=== PATIENT | male | born 1945 | race Caucasian/White ===

== ENCOUNTER 2019-12-08 16:13 | Inpatient (IN) ==
[2019-12-08] MEDS ORDERED: Dexamethasone 4 MG/ML VIAL IVP ONE (16:30)
[2019-12-08 16:49] LABS: Hematocrit 38.1 % (37.5-50.1); Hemoglobin 12.9 g/dL (12.9-16.9); Immature Granulocytes % 0.5 % (0-4); Lymphocytes # 0.3 K/mcL (0.6-4.6); Lymphocytes % 8.9 %; Mean Corpuscular HGB Conc 33.9 g/dL (31.6-35.5); Mean Corpuscular Hemoglobin 29.9 pg (28.0-33.3); Mean Corpuscular Volume 88.2 fL (83.0-100.0); Mean Platelet Volume 10.9 fL (9.4-12.4); Monocytes # 0.2 K/mcL (0.0-1.3); Monocytes % 5.5 %; Neutrophils # 3.3 K/mcL (1.6-8.9); Platelet Count 148 K/mcL (140-400); Red Blood Count 4.32 M/mcL (4.19-5.50); Red Cell Distribution Width 11.9 % (11.5-14.5); Segmented Neutrophils % 85.1 %; White Blood Count 3.8 K/mcL (4.3-11.1)
[2019-12-08 17:07] LABS: BUN/Creatinine Ratio 17 (6-26); Blood Urea Nitrogen 17 mg/dL (8-23); Calcium 7.7 mg/dL (8.6-10.3); Carbon Dioxide 27 mEq/L (23-29); Chloride 93 mEq/L (98-107); Glucose 137 mg/dL (70-105); Osmolality,Calculated 268 (280-300); Potassium 3.9 mEq/L (3.5-5.1); Sodium 127 mEq/L (136-145); Troponin I 0.03 ng/mL (< 0.04); eGFR For African Americans > 60 (> 60); eGFR For Non-African Americans > 60 (> 60)
[2019-12-08 17:20] LABS: Adenovirus Not Detected (Not Detect); Coronavirus 229E Not Detected (Not Detect); Coronavirus HKU1 Not Detected (Not Detect); Coronavirus NL63 Not Detected (Not Detect); Coronavirus OC43 Not Detected (Not Detect); SARS-CoV-2 DETECTED (Not Detect)
[2019-12-08 17:21] LABS: Bordetella Pertussis Not Detected (Not Detect); Chlamydophila pneumoniae Not Detected (Not Detect); Human Metapneumovirus Not Detected (Not Detect); Human Rhinovirus/Enterovirus Not Detected (Not Detect); Influenza A Subtype 2009 H1 Not Detected (Not Detect); Influenza B Not Detected (Not Detect); Mycoplasma pneumoniae Not Detected (Not Detect); Parainfluenza Virus 1 Not Detected (Not Detect); Parainfluenza Virus 2 Not Detected (Not Detect); Parainfluenza Virus 3 Not Detected (Not Detect); Parainfluenza Virus 4 Not Detected (Not Detect); Respiratory Syncytial Virus Not Detected (Not Detect)
[2019-12-08] MEDS ORDERED: Azithromycin 500 MG in 0.9 % Sodium Chloride 250 ML IVPB ONE (17:31)
[2019-12-08] MEDS ORDERED: Acetaminophen 325 MG TABLET PO PRN (17:34)
[2019-12-08] MEDS ORDERED: Ondansetron 4 MG/2 ML VIAL IVP PRN (17:34)
[2019-12-08] MEDS ORDERED: Calcium Gluconate 1gm/50mL 1 GM/50 ML BAG IVPB ONE (17:37)
[2019-12-08] MEDS ORDERED: *HR* Enoxaparin 30 MG/0.3 ML SYRINGE SQ ONE (18:08)
[2019-12-08 19:52] LABS: Alanine Aminotransferase 20 Units/L (7-52); Albumin 3.4 g/dL (3.5-5.7); Albumin/Globulin Ratio 1.4 (1.1-2.2); Alkaline Phosphatase 59 Units/L (34-104); Aspartate Amino Transferase 41 Units/L (13-39); Bilirubin,Direct 0.1 mg/dL (0.0-0.2); Bilirubin,Indirect 0.3 mg/dL (0.0-1.0); Bilirubin,Total 0.4 mg/dL (0.3-1.0); C-Reactive Protein 135 mg/L (Less than 10); Globulin 2.5 g/dL (2.4-3.5); Lactate Dehydrogenase 339 Units/L (140-271); Total Protein 5.9 g/dL (6.4-8.9)
[2019-12-08 20:10] LABS: Ferritin 849 ng/mL (20-250)
[2019-12-08 21:18] LABS: INR 0.9; Prothrombin Time 10.5 Seconds (9.4-12.1)
[2019-12-09] MEDS: *HR* Enoxaparin 40 MG/0.4 ML SYRINGE SQ SCH (05:02)
[2019-12-09 05:41] LABS: Hematocrit 38.2 % (37.5-50.1); Hemoglobin 12.9 g/dL (12.9-16.9); Mean Corpuscular HGB Conc 33.8 g/dL (31.6-35.5); Mean Corpuscular Hemoglobin 30.3 pg (28.0-33.3); Mean Corpuscular Volume 89.7 fL (83.0-100.0); Mean Platelet Volume 10.5 fL (9.4-12.4); Platelet Count 148 K/mcL (140-400); Red Blood Count 4.26 M/mcL (4.19-5.50); Red Cell Distribution Width 11.9 % (11.5-14.5); White Blood Count 2.6 K/mcL (4.3-11.1)
[2019-12-09 06:00] LABS: Alanine Aminotransferase 19 Units/L (7-52); Albumin 3.4 g/dL (3.5-5.7); Albumin/Globulin Ratio 1.3 (1.1-2.2); Alkaline Phosphatase 58 Units/L (34-104); Aspartate Amino Transferase 37 Units/L (13-39); BUN/Creatinine Ratio 18 (6-26); Bilirubin,Direct 0.1 mg/dL (0.0-0.2); Bilirubin,Indirect 0.3 mg/dL (0.0-1.0); Bilirubin,Total 0.4 mg/dL (0.3-1.0); Blood Urea Nitrogen 15 mg/dL (8-23); Calcium 7.7 mg/dL (8.6-10.3); Carbon Dioxide 27 mEq/L (23-29); Chloride 94 mEq/L (98-107); Globulin 2.7 g/dL (2.4-3.5); Glucose 157 mg/dL (70-105); Osmolality,Calculated 272 (280-300); Potassium 4.1 mEq/L (3.5-5.1); Sodium 129 mEq/L (136-145); Total Protein 6.1 g/dL (6.4-8.9); eGFR For African Americans > 60 (> 60); eGFR For Non-African Americans > 60 (> 60)
[2019-12-09] MEDS ORDERED: Calcium Gluconate 1gm/50mL 1 GM/50 ML BAG IVPB ONE (07:53)
[2019-12-09] MEDS: Tiotropium 18 MCG inhalation IH SCH (08:27)
[2019-12-09] MEDS ORDERED: Azithromycin 250 MG TABLET PO SCH (09:00)
[2019-12-09] MEDS ORDERED: Dexamethasone 10 MG/ML VIAL IVP SCH (09:00)
[2019-12-09] MEDS: Furosemide 20 MG/2 ML VIAL IVP SCH (12:46)
[2019-12-09] MEDS: Dexamethasone 4 MG/ML VIAL IVP SCH (12:47)
[2019-12-10] MEDS: *HR* Enoxaparin 40 MG/0.4 ML SYRINGE SQ SCH (05:41)
[2019-12-10 06:15] LABS: Hematocrit 36.9 % (37.5-50.1); Hemoglobin 12.5 g/dL (12.9-16.9); Mean Corpuscular HGB Conc 33.9 g/dL (31.6-35.5); Mean Corpuscular Hemoglobin 30.2 pg (28.0-33.3); Mean Corpuscular Volume 89.1 fL (83.0-100.0); Mean Platelet Volume 10.8 fL (9.4-12.4); Platelet Count 198 K/mcL (140-400); Red Blood Count 4.14 M/mcL (4.19-5.50)
[2019-12-10 06:24] LABS: White Blood Count 4.6 K/mcL (4.3-11.1)
[2019-12-10 06:30] LABS: BUN/Creatinine Ratio 32 (6-26); Blood Urea Nitrogen 25 mg/dL (8-23); Calcium 7.9 mg/dL (8.6-10.3); Carbon Dioxide 23 mEq/L (23-29); Chloride 97 mEq/L (98-107); Glucose 166 mg/dL (70-105); Magnesium 2.1 mg/dL (1.6-2.6); Osmolality,Calculated 278 (280-300); Potassium 4.1 mEq/L (3.5-5.1); Sodium 130 mEq/L (136-145); eGFR For African Americans > 60 (> 60); eGFR For Non-African Americans > 60 (> 60)
[2019-12-10] MEDS: Dexamethasone 4 MG/ML VIAL IVP SCH (07:59)
[2019-12-10] MEDS: Furosemide 20 MG/2 ML VIAL IVP SCH (08:00)
[2019-12-10] MEDS: Tiotropium 18 MCG inhalation IH SCH (08:06)
[2019-12-10 08:23] LABS: Alanine Aminotransferase 19 Units/L (7-52); Albumin 3.3 g/dL (3.5-5.7); Albumin/Globulin Ratio 1.3 (1.1-2.2); Alkaline Phosphatase 64 Units/L (34-104); Aspartate Amino Transferase 38 Units/L (13-39); Bilirubin,Direct 0.1 mg/dL (0.0-0.2); Bilirubin,Indirect 0.2 mg/dL (0.0-1.0); Bilirubin,Total 0.3 mg/dL (0.3-1.0); Globulin 2.6 g/dL (2.4-3.5); Total Protein 5.9 g/dL (6.4-8.9)
[2019-12-10] MEDS ORDERED: Calcium Gluconate 1gm/50mL 1 GM/50 ML BAG IVPB ONE (11:41)
[2019-12-10] MEDS ORDERED: Ondansetron 4 MG/2 ML VIAL IVP PRN (13:01)
[2019-12-10] MEDS ORDERED: Remdesivir 200 MG in 0.9 % Sodium Chloride 210 ML IVPB ONE (16:00)
[2019-12-11 03:46] LABS: Hematocrit 39.3 % (37.5-50.1); Hemoglobin 12.8 g/dL (12.9-16.9); Mean Corpuscular HGB Conc 32.6 g/dL (31.6-35.5); Mean Corpuscular Hemoglobin 29.5 pg (28.0-33.3); Mean Corpuscular Volume 90.6 fL (83.0-100.0); Mean Platelet Volume 10.3 fL (9.4-12.4); Platelet Count 249 K/mcL (140-400); Red Blood Count 4.34 M/mcL (4.19-5.50); Red Cell Distribution Width 12.2 % (11.5-14.5); White Blood Count 5.7 K/mcL (4.3-11.1)
[2019-12-11 03:52] LABS: INR 0.9; Prothrombin Time 9.8 Seconds (9.4-12.1)
[2019-12-11 04:02] LABS: Alanine Aminotransferase 29 Units/L (7-52); Albumin 3.3 g/dL (3.5-5.7); Albumin/Globulin Ratio 1.2 (1.1-2.2); Alkaline Phosphatase 57 Units/L (34-104); Aspartate Amino Transferase 40 Units/L (13-39); BUN/Creatinine Ratio 36 (6-26); Bilirubin,Total 0.4 mg/dL (0.3-1.0); Blood Urea Nitrogen 27 mg/dL (8-23); Calcium 8.4 mg/dL (8.6-10.3); Carbon Dioxide 29 mEq/L (23-29); Chloride 97 mEq/L (98-107); Globulin 2.8 g/dL (2.4-3.5); Glucose 142 mg/dL (70-105); Osmolality,Calculated 286 (280-300); Sodium 134 mEq/L (136-145); Total Protein 6.1 g/dL (6.4-8.9); eGFR For African Americans > 60 (> 60); eGFR For Non-African Americans > 60 (> 60)
[2019-12-11] MEDS: *HR* Enoxaparin 40 MG/0.4 ML SYRINGE SQ SCH (06:01)
[2019-12-11] MEDS: Tiotropium 18 MCG inhalation IH SCH (07:33)
[2019-12-11] MEDS: cefTRIAXone 2,000 MG in Water for inj. (sterile) 20 ML IVP SCH (08:35)
[2019-12-11] MEDS: Doxycycline 100 MG in 0.9 % Sodium Chloride Mini Bag 100 ML IVPB SCH ×2 (08:35→18:03)
[2019-12-11] MEDS: Furosemide 20 MG/2 ML VIAL IVP SCH (08:36)
[2019-12-11] MEDS: Dexamethasone 4 MG/ML VIAL IVP SCH (08:36)
[2019-12-11] MEDS ORDERED: 0.9 % Sodium Chloride 250 ML ONE (10:20)
[2019-12-11] MEDS: Acetaminophen 325 MG TABLET PO PRN (10:24)
[2019-12-11] MEDS: Remdesivir 100 MG in 0.9 % Sodium Chloride 230 ML IVPB SCH (16:15)
[2019-12-12 05:12] LABS: Hematocrit 39.8 % (37.5-50.1); Hemoglobin 13.2 g/dL (12.9-16.9); Mean Corpuscular HGB Conc 33.2 g/dL (31.6-35.5); Mean Corpuscular Hemoglobin 29.8 pg (28.0-33.3); Mean Corpuscular Volume 89.8 fL (83.0-100.0); Mean Platelet Volume 10.5 fL (9.4-12.4); Platelet Count 276 K/mcL (140-400); Red Blood Count 4.43 M/mcL (4.19-5.50); Red Cell Distribution Width 12.1 % (11.5-14.5)
[2019-12-12 05:22] LABS: Prothrombin Time 10.8 Seconds (9.4-12.1)
[2019-12-12 05:36] LABS: Alanine Aminotransferase 38 Units/L (7-52); Albumin 3.3 g/dL (3.5-5.7); Albumin/Globulin Ratio 1.2 (1.1-2.2); Alkaline Phosphatase 67 Units/L (34-104); Aspartate Amino Transferase 40 Units/L (13-39); BUN/Creatinine Ratio 47 (6-26); Bilirubin,Total 0.5 mg/dL (0.3-1.0); Blood Urea Nitrogen 31 mg/dL (8-23); Carbon Dioxide 28 mEq/L (23-29); Chloride 98 mEq/L (98-107); Globulin 2.7 g/dL (2.4-3.5); Glucose 138 mg/dL (70-105); Osmolality,Calculated 289 (280-300); Sodium 135 mEq/L (136-145); eGFR For African Americans > 60 (> 60); eGFR For Non-African Americans > 60 (> 60)
[2019-12-12] MEDS: *HR* Enoxaparin 40 MG/0.4 ML SYRINGE SQ SCH (05:50)
[2019-12-12] MEDS: Doxycycline 100 MG in 0.9 % Sodium Chloride Mini Bag 100 ML IVPB SCH (05:50)
[2019-12-12] MEDS: Tiotropium 18 MCG inhalation IH SCH (07:15)
[2019-12-12] MEDS: cefTRIAXone 2,000 MG in Water for inj. (sterile) 20 ML IVP SCH (08:43)
[2019-12-12] MEDS: Dexamethasone 4 MG/ML VIAL IVP SCH (08:45)
[2019-12-12] MEDS: Furosemide 20 MG/2 ML VIAL IVP SCH (08:45)
[2019-12-12] MEDS: Remdesivir 100 MG in 0.9 % Sodium Chloride 230 ML IVPB SCH (15:26)
[2019-12-12] MEDS: Acetaminophen 325 MG TABLET PO PRN ×2 (16:10→21:34)
[2019-12-12] MEDS: Doxycycline 100 MG CAPSULE PO SCH (21:33)
[2019-12-13 02:15] LABS: Hemoglobin 12.5 g/dL (12.9-16.9); Mean Corpuscular HGB Conc 32.9 g/dL (31.6-35.5); Mean Corpuscular Hemoglobin 30.3 pg (28.0-33.3); Mean Corpuscular Volume 92.2 fL (83.0-100.0); Mean Platelet Volume 10.6 fL (9.4-12.4); Platelet Count 310 K/mcL (140-400); Red Blood Count 4.12 M/mcL (4.19-5.50); Red Cell Distribution Width 12.3 % (11.5-14.5)
[2019-12-13 02:26] LABS: Alanine Aminotransferase 30 Units/L (7-52); Albumin 3.1 g/dL (3.5-5.7); Albumin/Globulin Ratio 1.3 (1.1-2.2); Alkaline Phosphatase 60 Units/L (34-104); Aspartate Amino Transferase 21 Units/L (13-39); BUN/Creatinine Ratio 47 (6-26); Bilirubin,Total 0.5 mg/dL (0.3-1.0); Blood Urea Nitrogen 35 mg/dL (8-23); Carbon Dioxide 31 mEq/L (23-29); Chloride 98 mEq/L (98-107); Globulin 2.4 g/dL (2.4-3.5); Glucose 133 mg/dL (70-105); Osmolality,Calculated 292 (280-300); Potassium 3.5 mEq/L (3.5-5.1); Sodium 136 mEq/L (136-145); Total Protein 5.5 g/dL (6.4-8.9); eGFR For African Americans > 60 (> 60); eGFR For Non-African Americans > 60 (> 60)
[2019-12-13 03:44] LABS: Prothrombin Time 11.8 Seconds (9.4-12.1)
[2019-12-13] MEDS: *HR* Enoxaparin 40 MG/0.4 ML SYRINGE SQ SCH (06:11)
[2019-12-13] MEDS: Tiotropium 18 MCG inhalation IH SCH (07:21)
[2019-12-13] MEDS: cefTRIAXone 2,000 MG in Water for inj. (sterile) 20 ML IVP SCH (09:06)
[2019-12-13] MEDS: Dexamethasone 4 MG/ML VIAL IVP SCH (09:07)
[2019-12-13] MEDS: Furosemide 20 MG/2 ML VIAL IVP SCH (09:08)
[2019-12-13] MEDS: Doxycycline 100 MG CAPSULE PO SCH ×2 (09:09→20:17)
[2019-12-13] MEDS: Remdesivir 100 MG in 0.9 % Sodium Chloride 230 ML IVPB SCH (16:08)
[2019-12-14 05:58] LABS: Hemoglobin 13.2 g/dL (12.9-16.9); Mean Corpuscular Volume 90.9 fL (83.0-100.0); Mean Platelet Volume 10.5 fL (9.4-12.4); Platelet Count 332 K/mcL (140-400); White Blood Count 7.6 K/mcL (4.3-11.1)
[2019-12-14 06:11] LABS: INR 1.1; Prothrombin Time 12.1 Seconds (9.4-12.1)
[2019-12-14 06:19] LABS: Alanine Aminotransferase 25 Units/L (7-52); Albumin 3.1 g/dL (3.5-5.7); Albumin/Globulin Ratio 1.2 (1.1-2.2); Alkaline Phosphatase 63 Units/L (34-104); Aspartate Amino Transferase 18 Units/L (13-39); BUN/Creatinine Ratio 42 (6-26); Bilirubin,Total 0.6 mg/dL (0.3-1.0); Blood Urea Nitrogen 25 mg/dL (8-23); Calcium 7.8 mg/dL (8.6-10.3); Carbon Dioxide 29 mEq/L (23-29); Chloride 99 mEq/L (98-107); Globulin 2.6 g/dL (2.4-3.5); Glucose 98 mg/dL (70-105); Osmolality,Calculated 284 (280-300); Potassium 3.5 mEq/L (3.5-5.1); Sodium 135 mEq/L (136-145); Total Protein 5.7 g/dL (6.4-8.9); eGFR For African Americans > 60 (> 60); eGFR For Non-African Americans > 60 (> 60)
[2019-12-14] MEDS: *HR* Enoxaparin 40 MG/0.4 ML SYRINGE SQ SCH (06:26)
[2019-12-14] MEDS: Tiotropium 18 MCG inhalation IH SCH (08:30)
[2019-12-14] MEDS: cefTRIAXone 2,000 MG in Water for inj. (sterile) 20 ML IVP SCH (09:10)
[2019-12-14] MEDS: Furosemide 20 MG/2 ML VIAL IVP SCH (09:11)
[2019-12-14] MEDS: Doxycycline 100 MG CAPSULE PO SCH ×2 (09:11→20:13)
[2019-12-14] MEDS: Dexamethasone 4 MG/ML VIAL IVP SCH (09:11)
[2019-12-14] MEDS: Acetaminophen 325 MG TABLET PO PRN (11:23)
[2019-12-14] MEDS: Remdesivir 100 MG in 0.9 % Sodium Chloride 230 ML IVPB SCH (16:25)
[2019-12-15 01:19] LABS: Hematocrit 39.1 % (37.5-50.1); Hemoglobin 12.8 g/dL (12.9-16.9); Mean Corpuscular HGB Conc 32.7 g/dL (31.6-35.5); Mean Corpuscular Volume 88.7 fL (83.0-100.0); Mean Platelet Volume 10.4 fL (9.4-12.4); Platelet Count 328 K/mcL (140-400); Red Blood Count 4.41 M/mcL (4.19-5.50); Red Cell Distribution Width 12.1 % (11.5-14.5); White Blood Count 6.3 K/mcL (4.3-11.1)
[2019-12-15 01:26] LABS: Prothrombin Time 11.8 Seconds (9.4-12.1)
[2019-12-15 01:40] LABS: Alanine Aminotransferase 24 Units/L (7-52); Albumin/Globulin Ratio 1.3 (1.1-2.2); Alkaline Phosphatase 63 Units/L (34-104); Aspartate Amino Transferase 17 Units/L (13-39); BUN/Creatinine Ratio 42 (6-26); Bilirubin,Total 0.6 mg/dL (0.3-1.0); Blood Urea Nitrogen 25 mg/dL (8-23); Calcium 7.8 mg/dL (8.6-10.3); Carbon Dioxide 28 mEq/L (23-29); Chloride 98 mEq/L (98-107); Globulin 2.3 g/dL (2.4-3.5); Glucose 128 mg/dL (70-105); Osmolality,Calculated 284 (280-300); Potassium 3.5 mEq/L (3.5-5.1); Sodium 134 mEq/L (136-145); Total Protein 5.3 g/dL (6.4-8.9); eGFR For African Americans > 60 (> 60); eGFR For Non-African Americans > 60 (> 60)
[2019-12-15] MEDS: Acetaminophen 325 MG TABLET PO PRN (04:02)
[2019-12-15] MEDS: *HR* Enoxaparin 40 MG/0.4 ML SYRINGE SQ SCH (06:22)
[2019-12-15] MEDS: Tiotropium 18 MCG inhalation IH SCH (07:42)
[2019-12-15] MEDS: Furosemide 20 MG/2 ML VIAL IVP SCH (08:34)
[2019-12-15] MEDS: Doxycycline 100 MG CAPSULE PO SCH ×2 (08:34→21:50)
[2019-12-15] MEDS: cefTRIAXone 2,000 MG in Water for inj. (sterile) 20 ML IVP SCH (08:36)
[2019-12-15] MEDS: Dexamethasone 4 MG/ML VIAL IVP SCH (08:38)
[2019-12-16 05:21] LABS: Prothrombin Time 11.5 Seconds (9.4-12.1)
[2019-12-16 05:25] LABS: Hematocrit 38.7 % (37.5-50.1); Hemoglobin 12.6 g/dL (12.9-16.9); Mean Corpuscular HGB Conc 32.6 g/dL (31.6-35.5); Mean Corpuscular Hemoglobin 29.9 pg (28.0-33.3); Mean Corpuscular Volume 91.7 fL (83.0-100.0); Mean Platelet Volume 11.4 fL (9.4-12.4); Platelet Count 275 K/mcL (140-400); Red Blood Count 4.22 M/mcL (4.19-5.50); Red Cell Distribution Width 12.1 % (11.5-14.5); White Blood Count 7.9 K/mcL (4.3-11.1)
[2019-12-16 05:37] LABS: Alanine Aminotransferase 27 Units/L (7-52); Albumin 2.9 g/dL (3.5-5.7); Albumin/Globulin Ratio 1.1 (1.1-2.2); Alkaline Phosphatase 61 Units/L (34-104); Aspartate Amino Transferase 19 Units/L (13-39); BUN/Creatinine Ratio 42 (6-26); Bilirubin,Total 0.7 mg/dL (0.3-1.0); Blood Urea Nitrogen 30 mg/dL (8-23); Calcium 7.9 mg/dL (8.6-10.3); Carbon Dioxide 29 mEq/L (23-29); Chloride 100 mEq/L (98-107); Globulin 2.6 g/dL (2.4-3.5); Glucose 119 mg/dL (70-105); Osmolality,Calculated 287 (280-300); Potassium 3.6 mEq/L (3.5-5.1); Sodium 135 mEq/L (136-145); Total Protein 5.5 g/dL (6.4-8.9); eGFR For African Americans > 60 (> 60); eGFR For Non-African Americans > 60 (> 60)
[2019-12-16] MEDS: *HR* Enoxaparin 40 MG/0.4 ML SYRINGE SQ SCH (06:26)
[2019-12-16] MEDS: Tiotropium 18 MCG inhalation IH SCH (07:22)
[2019-12-16] MEDS: Dexamethasone 4 MG/ML VIAL IVP SCH (08:53)
[2019-12-16] MEDS: Doxycycline 100 MG CAPSULE PO SCH ×2 (08:54→19:56)
[2019-12-16] MEDS: Furosemide 20 MG/2 ML VIAL IVP SCH (08:55)
[2019-12-17] MEDS: *HR* Enoxaparin 40 MG/0.4 ML SYRINGE SQ SCH (05:54)
[2019-12-17 06:43] LABS: Hematocrit 38.1 % (37.5-50.1); Hemoglobin 12.5 g/dL (12.9-16.9); Mean Corpuscular HGB Conc 32.8 g/dL (31.6-35.5); Mean Corpuscular Hemoglobin 30.3 pg (28.0-33.3); Mean Corpuscular Volume 92.5 fL (83.0-100.0); Mean Platelet Volume 10.9 fL (9.4-12.4); Platelet Count 285 K/mcL (140-400); Red Blood Count 4.12 M/mcL (4.19-5.50); Red Cell Distribution Width 12.1 % (11.5-14.5); White Blood Count 9.1 K/mcL (4.3-11.1)
[2019-12-17 06:51] LABS: INR 0.9; Prothrombin Time 10.5 Seconds (9.4-12.1)
[2019-12-17 07:02] LABS: Alanine Aminotransferase 29 Units/L (7-52); Albumin 2.9 g/dL (3.5-5.7); Albumin/Globulin Ratio 1.1 (1.1-2.2); Alkaline Phosphatase 61 Units/L (34-104); Aspartate Amino Transferase 19 Units/L (13-39); BUN/Creatinine Ratio 49 (6-26); Bilirubin,Total 0.7 mg/dL (0.3-1.0); Blood Urea Nitrogen 33 mg/dL (8-23); Calcium 8.4 mg/dL (8.6-10.3); Carbon Dioxide 29 mEq/L (23-29); Chloride 100 mEq/L (98-107); Globulin 2.6 g/dL (2.4-3.5); Glucose 112 mg/dL (70-105); Osmolality,Calculated 288 (280-300); Phosphorous 2.7 mg/dL (2.7-4.5); Potassium 3.8 mEq/L (3.5-5.1); Sodium 135 mEq/L (136-145); Total Protein 5.5 g/dL (6.4-8.9); eGFR For African Americans > 60 (> 60); eGFR For Non-African Americans > 60 (> 60)
[2019-12-17] MEDS: Tiotropium 18 MCG inhalation IH SCH (08:14)
[2019-12-17] MEDS: Dexamethasone 4 MG/ML VIAL IVP SCH (08:32)
[2019-12-17] MEDS: Furosemide 20 MG/2 ML VIAL IVP SCH (08:33)
[2019-12-17 20:16] VITALS: BP 115/61
[2019-12-18] MEDS ORDERED: Dexamethasone 4 MG/ML VIAL IVP SCH (09:00)
[2019-12-21] MEDS ORDERED: Dexamethasone 4 MG/ML VIAL IVP SCH (09:00)
== END 2019-12-17 22:40 | disposition short-term general hospital (02) | DRG 177 ==
LOC: EMEROOARM 16:13 → 2NENU 18:29 → SUATTDRO 18:29 → 2NENU 19:00
PROVIDERS: ADMIT Internal Medicine; ATTEND Internal Medicine